=== PATIENT | female | born 1985 | race African-American/Black ===

== ENCOUNTER 2016-08-25 21:35 | Emergency (ER) | payer MEDICAID ==
[~2016-08-25] VITALS: Ht 175.3 cm; Wt 68.0 kg
[~2016-08-25 21:35] MED LIST: ASPI81TA2 PO; PLA200 PO
[2016-08-25 21:42] VITALS: BP 137/82; PULSE 97; RESP 18; TEMP 100.2; O2SAT 98
[2016-08-25] MEDS ORDERED: KETOROLAC TROMETHAMINE 60 MG/2 ML VIAL IM ONE (23:00)
[2016-08-26 00:12] VITALS: BP 128/82; PULSE 95; RESP 18; TEMP 98.7; O2SAT 98
== END 2016-08-26 00:12 | disposition home or self-care (01) ==
LOC: SED 21:35
DX: J40 Bronchitis, not specified as acute or chronic (principal); M06.9 Rheumatoid arthritis, unspecified; Z88.2 Allergy status to sulfonamides
CPT/HCPCS: 74020; 81025; 96372; 99284; J1885

== ENCOUNTER 2016-09-21 00:38 | Emergency (ER) | payer MEDICAID ==
[~2016-09-21] VITALS: Ht 175.3 cm; Wt 72.6 kg
[2016-09-21 01:11] VITALS: BP 123/68; PULSE 92; RESP 17; TEMP 98.5; O2SAT 98
--- NOTE | 2016-09-21 01:20 | NUR ---
Placed in room 08 . Placed on environmental monitoring technician, blood pressure machine and pulse oximeter. To gown for exam. Side rails up. Report given to PHAM Patel.
--- NOTE | 2016-09-21 01:25 | NUR ---
Patient AAO x4, sitting in bed, c/o cough x 4 days and "lupus flare up" c/o rash to upper chest. No acute distress noted. Denies chest pain, denies shortness of breath. Will continue to monitor.
--- NOTE | 2016-09-21 01:30 | NUR ---
ER at bedside examining patient.
[2016-09-21 02:00] LABS: BASOPHILS % (AUTO) 0.6 % (0.0-2.0); EOSINOPHILS % (AUTO) 0.8 % (0.0-4.0); HEMATOCRIT 34.5 % (36-48); HEMOGLOBIN 11.3 g/dL (12.0-16.0); LYMPHOCYTES # (AUTO) 1.3 K/uL (1.0-5.5); LYMPHOCYTES % (AUTO) 23.1 % (20.5-51.5); MEAN CORPUSCULAR HEMOGLOBIN 26 pg (27-31); MEAN CORPUSCULAR HGB CONC 33 % (32-36); MEAN CORPUSCULAR VOLUME 81 fL (79.0-98.0); MONOCYTES # (AUTO) 0.3 K/uL (0.0-1.0); NEUTROPHILS # (AUTO) 3.9 K/uL (1.8-7.7); NEUTROPHILS % (AUTO) 69.5 % (40.0-70.0); PLATELET COUNT (AUTO) 153 K/uL (130-430); RED BLOOD CELL COUNT(AUTO) 4.28 MIL/uL (4.2-6.2); RED CELL DISTRIBUTION WIDTH 18.1 % (9.0-15.0); WHITE BLOOD COUNT (AUTO) 5.5 K/uL (4.8-10.8)
[2016-09-21 02:09] LABS: CALCIUM 8.2 mg/dL (8.4-11.0); CREATININE 0.6 mg/dL (0.55-1.30); POTASSIUM 3.5 mmol/L (3.5-5.1)
[2016-09-21 02:13] LABS: PROTHROMBIN TIME 10.7 SECS (9.5-12.5)
[2016-09-21 02:14] LABS: ALBUMIN 3.6 g/dL (3.4-4.8); TOTAL BILIRUBIN 0.4 mg/dL (0.0-1.0); TOTAL PROTEIN, SERUM 8.2 g/dL (6.4-8.3)
[2016-09-21 02:15] LABS: BILIRUBIN,URINE NEGATIVE (NEGATIVE); BLOOD, URINE NEGATIVE (NEGATIVE); CLARITY/URINE SL CLOUDY (CLEAR); COLOR,URINE YELLOW (YELLOW); GLUCOSE,URINE NEGATIVE (NEGATIVE); KETONES,URINE TRACE (NEGATIVE); LEUKOCYTE ESTERASE ,URINE 2+ (NEGATIVE); NITRITE, URINE POSITIVE (NEGATIVE); PH,URINE 6.5 (5.0-8.0); PROTEIN URINE TRACE (NEGATIVE)
[2016-09-21 02:19] LABS: BACTERIA,URINE MANY /HPF (None Seen); MUCUS,URINE None Seen /LPF (None Seen); WBC,URINE 50-80 /HPF (0-3)
[2016-09-21] MEDS ORDERED: NITROFURANTOIN MONOHYD/M-CRYST 100 MG CAPSULE PO ONE (02:45)
[2016-09-21] MEDS ORDERED: KETOROLAC TROMETHAMINE 60 MG/2 ML VIAL IM ONE (02:45)
[2016-09-21 03:03] VITALS: BP 122/70; PULSE 88; RESP 17; TEMP 98.5; O2SAT 98
--- NOTE | 2016-09-21 03:03 | NUR ---
Patient given written and verbal discharge instructions and verbalizes understanding. ER MD discussed with patient the results and treatment provided. Patient in stable condition. ID arm band removed. IV catheter removed intact and dressing applied, no active bleeding. Rx of tramadol and macrobid given. Patient educated on pain management and to follow up with PMD. Pain Scale 0/10. Opportunity for questions provided and answered.
--- NOTE | 2016-09-23 13:23 | NUR ---
+ URINE CX OBTAINED, SENSITIVE TO MACROBID, PT SENT HOME WITH RX TO MACROBID NO FURTHER ACTION NEEDED.
== END 2016-09-21 03:03 | disposition home or self-care (01) ==
LOC: SED 00:38
DX: N39.0 Urinary tract infection, site not specified (principal); Z88.2 Allergy status to sulfonamides
CPT/HCPCS: 36415; 71010; 80053; 81000; 81025; 85025; 85610; 85730; 87086; 87186; 96372; 99285; J1885